=== PATIENT | male | born 1955 | race Caucasian/White ===

== ENCOUNTER 2022-09-30 17:32 | Inpatient (IN) | payer OTHER ==
[2022-09-30 18:24] VITALS: BMI 20.3
[2022-09-30] MEDS ORDERED: POLYETHYLENE GLYCOL (HEALTHYLAX) 3350 17 GM PACKET PO PRN (20:47)
[2022-09-30] MEDS ORDERED: NALOXONE HCL 0.4 MG/ML VIAL IM PRN (20:47)
[2022-09-30] MEDS ORDERED: NICOTINE POLACRILEX 2 MG GUM BUC PRN (20:47)
[2022-09-30] MEDS ORDERED: ACETAMINOPHEN 325 MG TABLET (FP) PO PRN (20:47)
[2022-09-30] MEDS ORDERED: IBUPROFEN 600 MG TABLET (FP) PO PRN (20:47)
[2022-09-30] MEDS ORDERED: BENZOCAINE/MENTHOL (CHLORASEPTIC ) LOZENGE MM PRN (20:47)
[2022-09-30] MEDS ORDERED: IBUPROFEN 400 MG TABLET (FP) PO PRN (20:47)
[2022-09-30] MEDS ORDERED: guaiFENesin 600 MG TABLET.ER (FP) PO PRN (20:47)
[2022-09-30] MEDS ORDERED: MAGNESIUM HYDROX 2400MG/30ML ORAL SUSPENSION 30 ML CUP PO PRN (20:47)
[2022-09-30] MEDS ORDERED: MAG HYDROX/AL HYDROX/SIMETH 30 ML UNIT-DOSE CUP PO PRN (20:47)
[2022-09-30] MEDS ORDERED: LOPERAMIDE HCL 2 MG CAPSULE PO PRN (20:47)
[2022-09-30] MEDS ORDERED: BENZONATATE 200 MG CAPSULE PO PRN (20:47)
[2022-09-30] MEDS ORDERED: COLLOIDAL OATMEAL 1 BAR EACH TP PRN (20:47)
[2022-09-30] MEDS ORDERED: NALOXONE HCL (KLOXXADO) 8 MG SPRAY NS PRN (20:47)
[2022-09-30] MEDS ORDERED: AMMONIUM LACTATE 12% LOTION 225 GM BOTTLE TP PRN (20:47)
[2022-09-30] MEDS ORDERED: TUBERCULIN PPD 5 TU/0.1ML SYRINGE (IN PATIENT USE ONLY) ID ONE (23:00)
[2022-09-30] MEDS: MELATONIN 5 MG TABLETS PO SCH (23:02)
[2022-09-30] MEDS: THIAMINE HCL 100 MG TABLET (FP) PO SCH (23:02)
[2022-10-01] MEDS: amLODIPine BESYLATE 10 MG TABLET (FP) PO SCH (09:52)
[2022-10-01] MEDS: ASPIRIN COATED 81 MG TABLET.EC PO SCH (09:52)
[2022-10-01] MEDS: NICOTINE 21 MG/24 HOURS TOPICAL PATCH TD SCH ×2 (09:52→09:55)
[2022-10-01] MEDS: PRENATAL VITAMINS W/ FOLIC ACID TABLET (FP) PO SCH (09:52)
[2022-10-01] MEDS: HYDROCHLOROTHIAZIDE 25 MG TABLET (FP) PO SCH (09:52)
[2022-10-01 10:13] LABS: POTASSIUM 4.5 mmol/L (3.5-5.1)
[2022-10-01 10:15] LABS: HEMATOCRIT 42.1 % (35.4-49); HEMOGLOBIN 14.1 GM/dL (11.7-16.9); MCH 30.9 pg (25.7-33.7); MCHC 33.5 g/dl (32.0-35.9); MEAN CELL VOLUME 92.1 fl (80-96); MEAN PLT VOLUME 8.3 fl (7.5-11.1); PLATELET COUNT 366 10^3/uL (134-434); RBC 4.57 M/mm3 (4.00-5.60); RDW 13.9 % (11.9-15.9); WHITE BLOOD COUNT 4.3 K/mm3 (4.0-10.0)
[2022-10-01 10:19] LABS: URINE APPEARANCE CLEAR; URINE BILIRUBIN NEGATIVE (NEGATIVE); URINE COLOR YELLOW; URINE GLUCOSE (UA) NEGATIVE (NEGATIVE); URINE KETONE NEGATIVE (NEGATIVE); URINE LEUK ESTERASE NEGATIVE (NEGATIVE); URINE NITRITE NEGATIVE (NEGATIVE); URINE PROTEIN NEGATIVE (NEGATIVE); URINE UROBILINOGEN 0.2 mg/dL (0.2-1.0)
[2022-10-01 10:28] LABS: ALBUMIN 4.1 g/dl (3.4-5.0); BLOOD UREA NITROGEN 21.7 mg/dL (7-18)
[2022-10-01 10:33] LABS: BILIRUBIN,TOTAL 0.8 mg/dL (0.2-1); TOT PROT 8.2 g/dl (6.4-8.2)
[2022-10-01 12:45] LABS: SYPHILIS W/ RPR CONF REACTIVE (NONREACTIVE)
[2022-10-01] MEDS ORDERED: metFORMIN HCL 500 MG TABLET (FP) PO SCH (13:15)
[2022-10-01] MEDS: LISINOPRIL 5 MG TABLET PO SCH (13:41)
[2022-10-01] MEDS: metFORMIN HCL 500 MG TABLET (FP) PO SCH ×2 (16:44→21:38)
[2022-10-01] MEDS: THIAMINE HCL 100 MG TABLET (FP) PO SCH (21:37)
[2022-10-01] MEDS: MELATONIN 5 MG TABLETS PO SCH (21:37)
[2022-10-01] MEDS: ATORVASTATIN CA 40 MG TABLET (FP) PO SCH (21:38)
[2022-10-02] MEDS: LISINOPRIL 5 MG TABLET PO SCH (10:25)
[2022-10-02] MEDS: HYDROCHLOROTHIAZIDE 25 MG TABLET (FP) PO SCH (10:25)
[2022-10-02] MEDS: ASPIRIN COATED 81 MG TABLET.EC PO SCH (10:25)
[2022-10-02] MEDS: amLODIPine BESYLATE 10 MG TABLET (FP) PO SCH (10:25)
[2022-10-02] MEDS: PRENATAL VITAMINS W/ FOLIC ACID TABLET (FP) PO SCH (10:25)
[2022-10-02] MEDS: SERTRALINE HCL 50 MG TABLET (FP) PO SCH (10:25)
[2022-10-02] MEDS: metFORMIN HCL 500 MG TABLET (FP) PO SCH ×2 (10:26→21:14)
[2022-10-02] MEDS: NICOTINE 21 MG/24 HOURS TOPICAL PATCH TD SCH (10:26)
[2022-10-02] MEDS: THIAMINE HCL 100 MG TABLET (FP) PO SCH (21:14)
[2022-10-02] MEDS: MELATONIN 5 MG TABLETS PO SCH (21:14)
[2022-10-02] MEDS: ATORVASTATIN CA 40 MG TABLET (FP) PO SCH (21:15)
[2022-10-03 08:02] VITALS: RESP 18; TEMP 97.3
[2022-10-03 09:08] VITALS: BP 119/72; PULSE 66
[2022-10-03] MEDS: PRENATAL VITAMINS W/ FOLIC ACID TABLET (FP) PO SCH (09:50)
[2022-10-03] MEDS: metFORMIN HCL 500 MG TABLET (FP) PO SCH (09:52)
[2022-10-03] MEDS: ASPIRIN COATED 81 MG TABLET.EC PO SCH (09:53)
[2022-10-03] MEDS: SERTRALINE HCL 50 MG TABLET (FP) PO SCH (09:53)
[2022-10-03] MEDS: amLODIPine BESYLATE 10 MG TABLET (FP) PO SCH (09:53)
[2022-10-03] MEDS: HYDROCHLOROTHIAZIDE 25 MG TABLET (FP) PO SCH (09:53)
[2022-10-03] MEDS: LISINOPRIL 5 MG TABLET PO SCH (09:53)
[2022-10-03] MEDS: NICOTINE 21 MG/24 HOURS TOPICAL PATCH TD SCH (09:54)
== END 2022-10-03 11:28 | disposition home or self-care (01) | DRG 895 ==
LOC: YASAS 17:32 → Y3W 20:48
PROVIDERS: ADMIT Allergy & Immunology; ATTEND Psychiatry & Neurology Pain Medicine
PROC: HZ42ZZZ Group Counseling for Substance Abuse Treatment, Cognitive-Behavioral (ICD-10-PCS; principal; 2022-09-30)
DX: F14.20 Cocaine dependence, uncomplicated (principal); I69.854 Hemiplegia and hemiparesis following other cerebrovascular disease affecting left non-dominant side; F10.10 Alcohol abuse, uncomplicated; F12.10 Cannabis abuse, uncomplicated; F17.210 Nicotine dependence, cigarettes, uncomplicated; F32.A Depression, unspecified; F41.9 Anxiety disorder, unspecified; E78.5 Hyperlipidemia, unspecified; I25.10 Atherosclerotic heart disease of native coronary artery without angina pectoris; I10 Essential (primary) hypertension; I25.2 Old myocardial infarction; E11.9 Type 2 diabetes mellitus without complications; Z79.84 Long term (current) use of oral hypoglycemic drugs
CPT/HCPCS: 36415; 80053; 81003; 82962; 85027; 86593; 86780; 86803; 87635; 87811; 93005; 93010

== ENCOUNTER 2023-05-26 16:26 | Inpatient (IN) | payer OTHER ==
[2023-05-26 18:28] VITALS: BMI 23.4
[2023-05-26] MEDS ORDERED: MAGNESIUM HYDROX 2400MG/30ML ORAL SUSPENSION 30 ML CUP PO PRN (19:23)
[2023-05-26] MEDS ORDERED: hydrOXYzine PAMOATE 25 MG CAPSULE (FP) PO PRN (19:23)
[2023-05-26] MEDS ORDERED: MAG HYDROX/AL HYDROX/SIMETH 30 ML UNIT-DOSE CUP PO PRN (19:23)
[2023-05-26] MEDS ORDERED: BISMUTH SUBSALICYLATE 524 MG/30 ML PO PRN (19:23)
[2023-05-26] MEDS ORDERED: DICYCLOMINE HCL 10 MG CAPSULE PO PRN (19:23)
[2023-05-26] MEDS ORDERED: ACETAMINOPHEN 325 MG TABLET (FP) PO PRN (19:23)
[2023-05-26] MEDS ORDERED: NALOXONE HCL (KLOXXADO) 8 MG SPRAY NS PRN (19:23)
[2023-05-26] MEDS ORDERED: ONDANSETRON *ODT* 4 MG TABLET SL PRN (19:23)
[2023-05-26] MEDS ORDERED: guaiFENesin 600 MG TABLET.ER (FP) PO PRN (19:23)
[2023-05-26] MEDS ORDERED: chlordiazePOXIDE HCL 25 MG CAPSULE PO PRN (19:23)
[2023-05-26] MEDS ORDERED: BENZOCAINE/MENTHOL (CHLORASEPTIC ) LOZENGE MM PRN (19:23)
[2023-05-26] MEDS ORDERED: IBUPROFEN 600 MG TABLET (FP) PO PRN (19:23)
[2023-05-26] MEDS ORDERED: LOPERAMIDE HCL 2 MG CAPSULE PO PRN (19:23)
[2023-05-26] MEDS ORDERED: POLYETHYLENE GLYCOL (HEALTHYLAX) 3350 17 GM PACKET PO PRN (19:23)
[2023-05-26] MEDS ORDERED: BENZONATATE 200 MG CAPSULE PO PRN (19:23)
[2023-05-26] MEDS ORDERED: IBUPROFEN 400 MG TABLET (FP) PO PRN (19:23)
[2023-05-26] MEDS ORDERED: NALOXONE HCL 0.4 MG/ML VIAL IM PRN (19:23)
[2023-05-26] MEDS ORDERED: METHOCARBAMOL 500 MG TABLET PO PRN (19:23)
[2023-05-26] MEDS: THIAMINE HCL 100 MG TABLET (FP) PO SCH (22:22)
[2023-05-26] MEDS: chlordiazePOXIDE HCL 25 MG CAPSULE PO SCH (22:22)
[2023-05-26] MEDS: MELATONIN 5 MG TABLETS PO SCH (22:24)
[2023-05-27] MEDS: metFORMIN HCL 500 MG TABLET (FP) PO SCH ×2 (06:20→17:52)
[2023-05-27] MEDS ORDERED: PATIENT'S OWN MEDICATION (NON-FORMULARY) (Dorzolamide Hcl/Timolol Maleat [Cosopt Eye Drops OP SCH (10:00)
[2023-05-27] MEDS: PRENATAL VITAMINS W/ FOLIC ACID TABLET (FP) PO SCH (10:39)
[2023-05-27] MEDS: HYDROCHLOROTHIAZIDE 25 MG TABLET (FP) PO SCH (10:39)
[2023-05-27] MEDS: ASPIRIN COATED 81 MG TABLET.EC PO SCH (10:39)
[2023-05-27] MEDS: TIMOLOL 0.5% OPHTHALMIC SOL 5 ML BOTTLE OU SCH (10:41)
[2023-05-27] MEDS: DORZOLAMIDE 2% HCL OPHTHALMIC SOLUTION 10 ML BOTTLE OU SCH (10:41)
[2023-05-27 12:45] LABS: CHLORIDE 103 mmol/L (98-107); POTASSIUM 4.2 mmol/L (3.5-5.1); SODIUM 140 mmol/L (136-145)
[2023-05-27 12:47] LABS: HEMATOCRIT 35.1 % (35.4-49); HEMOGLOBIN 11.7 GM/dL (11.7-16.9); MCH 29.2 pg (25.7-33.7); MCHC 33.3 g/dl (32.0-35.9); MEAN CELL VOLUME 87.7 fl (80-96); MEAN PLT VOLUME 8.3 fl (7.5-11.1); PLATELET COUNT 217 10^3/uL (134-434); RBC 4.01 M/mm3 (4.00-5.60); WHITE BLOOD COUNT 3.9 K/mm3 (4.0-10.0)
[2023-05-27 12:49] LABS: GLUCOSE,RANDOM 143 mg/dL (74-106)
[2023-05-27 12:50] LABS: ANION GAP 6 mmol/L (4-13); CALCIUM 9.2 mg/dL (8.5-10.1); CO2 31 mmol/L (21-32)
[2023-05-27 12:51] LABS: ALBUMIN 3.3 g/dl (3.4-5.0); BLOOD UREA NITROGEN 19.4 mg/dL (7-18); CREATININE 1.1 mg/dL (0.55-1.3); SGOT/AST 14 U/L (15-37); SGPT/ALT 24 U/L (13-61)
[2023-05-27 12:54] LABS: ALK PHOS 124 U/L (45-117); TOT PROT 6.9 g/dl (6.4-8.2)
[2023-05-27 13:10] LABS: BILIRUBIN,TOTAL 0.2 mg/dL (0.2-1)
[2023-05-27] MEDS: DONEPEZIL HCL 5 MG TABLET (FP) PO SCH (22:40)
[2023-05-27] MEDS: ATORVASTATIN CA 40 MG TABLET (FP) PO SCH (22:40)
[2023-05-28] MEDS: chlordiazePOXIDE HCL 25 MG CAPSULE PO SCH (06:37)
[2023-05-28] MEDS ORDERED: SERTRALINE HCL 50 MG TABLET (FP) PO SCH (10:35)
[2023-05-28] MEDS: SERTRALINE HCL 50 MG TABLET (FP) PO SCH (10:57)
[2023-05-29] MEDS ORDERED: chlordiazePOXIDE HCL 10 MG CAPSULE PO PRN
[2023-05-29] MEDS: chlordiazePOXIDE HCL 10 MG CAPSULE PO SCH (05:50)
[2023-05-29] MEDS: amLODIPine BESYLATE 10 MG TABLET (FP) PO SCH (10:43)
[2023-05-30] MEDS: chlordiazePOXIDE HCL 10 MG CAPSULE PO SCH (05:58)
[2023-05-31] MEDS: chlordiazePOXIDE HCL 10 MG CAPSULE PO ONE (05:55)
[2023-05-31 06:02] VITALS: RESP 16; TEMP 97.3
[2023-05-31 09:09] VITALS: BP 134/83; PULSE 61
== END 2023-05-31 13:42 | disposition home or self-care (01) | DRG 897 ==
LOC: YASAS 16:26 → Y6N 19:45
PROVIDERS: ADMIT Allergy & Immunology; ATTEND Surgery
PROC: HZ2ZZZZ Detoxification Services for Substance Abuse Treatment (ICD-10-PCS; principal; 2023-05-26)
DX: F19.230 Other psychoactive substance dependence with withdrawal, uncomplicated (principal); F14.20 Cocaine dependence, uncomplicated; Z59.00 Homelessness unspecified; I69.854 Hemiplegia and hemiparesis following other cerebrovascular disease affecting left non-dominant side; F10.230 Alcohol dependence with withdrawal, uncomplicated; F12.20 Cannabis dependence, uncomplicated; H40.9 Unspecified glaucoma; I10 Essential (primary) hypertension; E78.5 Hyperlipidemia, unspecified; E11.9 Type 2 diabetes mellitus without complications; Z79.84 Long term (current) use of oral hypoglycemic drugs; Z86.19 Personal history of other infectious and parasitic diseases; Z86.59 Personal history of other mental and behavioral disorders; Z99.89 Dependence on other enabling machines and devices; Z56.0 Unemployment, unspecified; I25.2 Old myocardial infarction; Z95.5 Presence of coronary angioplasty implant and graft
CPT/HCPCS: 36415; 80053; 80305; 80307; 82962; 85027; 86593; 86780; 87635; 87811; 93005; 93010